=== PATIENT | female | born 1990 | race Asian ===

== ENCOUNTER 2021-10-15 12:42 | Inpatient (IN) | payer OTHER, SELFPAY ==
[~2021-10-15] VITALS: Ht 170.2 cm; Wt 90.3 kg
[2021-10-15] MEDS ORDERED: NIFEdipine 10 MG CAPLF PO SCH (13:05)
[2021-10-15 13:41] LABS: BASOPHILS % (AUTO) 0.7 % (0.0-2.0); EOSINOPHILS # (AUTO) 0.1 K/uL (0-0.4); HEMATOCRIT 40.3 % (36-48); HEMOGLOBIN 13.9 g/dL (12.0-16.0); LYMPHOCYTES # (AUTO) 1.5 K/uL (2.5-16.5); LYMPHOCYTES % (AUTO) 21.1 % (20.5-51.1); MEAN CORPUSCULAR HEMOGLOBIN 33 pg (27-31); MEAN CORPUSCULAR HGB CONC 35 g/dL (33-37); MEAN CORPUSCULAR VOLUME 94.4 fL (80-94); MONOCYTES # (AUTO) 0.3 K/uL (0.8-1.0); MONOCYTES % (AUTO) 4.7 % (1.7-9.3); NEUTROPHILS % (AUTO) 72.5 % (42.2-75.2); PLATELET COUNT (AUTO) 160 K/uL (140-450); RED BLOOD CELL COUNT(AUTO) 4.27 MIL/uL (4.20-5.40); RED CELL DISTRIBUTION WIDTH 14.3 % (11.6-13.7)
[2021-10-15] MEDS ORDERED: BETAMETH ACET/BETAMETH NA PH 30 MG/5 ML VIAL IM ONE (13:41)
[2021-10-15] MEDS: BETAMETH ACET/BETAMETH NA PH 30 MG/5 ML VIAL IM SCH (13:54)
[2021-10-15 13:59] LABS: APPEARANCE,URINE HAZY (CLEAR); BILIRUBIN,URINE NEGATIVE (NEGATIVE); BLOOD, URINE NEGATIVE (NEGATIVE); COLOR,URINE ORANGE (YELLOW); LEUKOCYTE ESTERASE ,URINE 2+ (NEGATIVE); NITRITE, URINE NEGATIVE (NEGATIVE); PH,URINE 6.5 (5.0-9.0); UGLUCOSE TRACE (NEGATIVE)
[2021-10-15 14:04] LABS: ALBUMIN 2.6 g/dL (3.4-5.0); ANION GAP 15.6 (8-16); CARBON DIOXIDE 22.3 mmol/L (21-32); CREATININE 0.5 mg/dL (0.6-1.3); POTASSIUM 3.9 mmol/L (3.5-5.1); TOTAL BILIRUBIN 0.6 mg/dL (0.0-1.0)
[2021-10-15 14:28] LABS: CALCIUM OXALATE CRYSTALS,UR None Seen /HPF (None Seen); COARSE GRANULAR CASTS,URINE None Seen /LPF (None Seen); FINE GRANULAR CASTS,URINE None Seen /LPF (None Seen); HYALINE CASTS, URINE None Seen /LPF (None Seen); OTHER CRYSTALS,URINE None Seen /HPF (None Seen); RBC,URINE 0-5 /HPF (0-5); TRICHOMONAS,URINE None Seen /HPF (None Seen); TRIPLE PHOSPHATE CRYSTAL,UR None Seen /HPF (None Seen); URIC ACID CRYSTALS,URINE None Seen /HPF (None Seen); URINE AMORPHOUS URATE None Seen /HPF (None Seen); WAXY CASTS,URINE None Seen /LPF (None Seen); YEAST,URINE None Seen /HPF (None Seen)
[2021-10-15 14:29] LABS: OTHER CASTS, URINE None Seen /LPF (None Seen); RED BLOOD CELL CASTS,URINE None Seen /LPF (None Seen)
[2021-10-15] MEDS: NIFEdipine 10 MG CAPLF PO SCH (20:05)
[2021-10-16] MEDS: NIFEdipine 10 MG CAPLF PO SCH ×2 (02:02→08:25)
[2021-10-16] MEDS ORDERED: MAG SULF 2000 MG/WATER PREMIX 100 ML IV SCH (07:00)
[2021-10-16] MEDS ORDERED: MAG SULF 20 GM/H2O PREMIX DRIP 500 ML IV PRN (07:00)
[2021-10-16] MEDS ORDERED: LACTATED RINGERS 1,000 ML IV SCH (07:00)
--- NOTE | 2021-10-16 09:14 | NUR ---
PATIENT HAS BEEN SCREENED AND CATEGORIZED LOW NUTRITION RISK. PATIENT WILL BE SEEN WITHIN 7 DAYS OF ADMISSION. 10/16/21-10/21/[address]
[2021-10-16] MEDS: BETAMETH ACET/BETAMETH NA PH 30 MG/5 ML VIAL IM SCH (13:33)
== END 2021-10-16 16:00 | disposition short-term general hospital (02) | DRG 566 ==
LOC: MFCC 12:42 → OBSVTOIN 13:13 → MFCC 10-16 08:30
PROVIDERS: ADMIT Obstetrics & Gynecology; ATTEND Obstetrics & Gynecology
DX: O60.03 Preterm labor without delivery, third trimester (principal); O24.419 Gestational diabetes mellitus in pregnancy, unspecified control; O30.043 Twin pregnancy, dichorionic/diamniotic, third trimester; Z3A.34 34 weeks gestation of pregnancy; Z20.822 Contact with and (suspected) exposure to COVID-19; O32.1XX1 Maternal care for breech presentation, fetus 1; O32.1XX2 Maternal care for breech presentation, fetus 2
CPT/HCPCS: 36415; 80053; 81001; 85025; 86886; 86900; 86901; 87086; J0702; J3475

== ENCOUNTER 2021-10-24 21:35 | Inpatient (IN) | payer OTHER, SELFPAY ==
[~2021-10-24] VITALS: Ht 170.2 cm; Wt 90.7 kg
[2021-10-24] MEDS: OXYTOCIN 20 UNITS in LACTATED RINGERS 1,000 ML IV SCH (14:53)
[2021-10-24] MEDS ORDERED: METHYLERGONOVINE 0.2 MG/ML AMP IM PRN (22:20)
[2021-10-24] MEDS ORDERED: CARBOPROST 250 MCG/ML AMP IM PRN (22:20)
[2021-10-24] MEDS ORDERED: LACTATED RINGERS 1,000 ML IV SCH (22:20)
[2021-10-24] MEDS ORDERED: LACTATED RINGERS 500 ML IV SCH (22:20)
[2021-10-24 22:54] LABS: BASOPHILS % (AUTO) 0.2 % (0.0-2.0); EOSINOPHILS # (AUTO) 0.1 K/uL (0-0.4); EOSINOPHILS % (AUTO) 1.1 % (0.0-4.0); HEMATOCRIT 40.4 % (36-48); HEMOGLOBIN 13.8 g/dL (12.0-16.0); LYMPHOCYTES # (AUTO) 1.6 K/uL (2.5-16.5); MEAN CORPUSCULAR HEMOGLOBIN 32 pg (27-31); MEAN CORPUSCULAR HGB CONC 34 g/dL (33-37); MEAN CORPUSCULAR VOLUME 94.8 fL (80-94); MONOCYTES # (AUTO) 0.5 K/uL (0.8-1.0); MONOCYTES % (AUTO) 5.7 % (1.7-9.3); NEUTROPHILS # (AUTO) 6.8 K/uL (1.8-7.7); PLATELET COUNT (AUTO) 181 K/uL (140-450); RED BLOOD CELL COUNT(AUTO) 4.27 MIL/uL (4.20-5.40); RED CELL DISTRIBUTION WIDTH 14.1 % (11.6-13.7); WHITE BLOOD COUNT (AUTO) 9.1 K/uL (4.8-10.8)
[2021-10-24 23:00] LABS: PROTHROMBIN TIME 9.1 secs (10.8-13.4)
[2021-10-24 23:01] LABS: ALBUMIN 2.7 g/dL (3.4-5.0); ANION GAP 14.9 (8-16); CARBON DIOXIDE 26.6 mmol/L (21-32); CREATININE 0.5 mg/dL (0.6-1.3); POTASSIUM 4.5 mmol/L (3.5-5.1); TOTAL BILIRUBIN 0.5 mg/dL (0.0-1.0); URIC ACID 3.6 mg/dL (2.6-7.2)
[2021-10-24 23:28] VITALS: BP 109/68
[2021-10-24 23:43] LABS: APPEARANCE,URINE CLEAR (CLEAR); BILIRUBIN,URINE NEGATIVE (NEGATIVE); BLOOD, URINE NEGATIVE (NEGATIVE); COLOR,URINE YELLOW (YELLOW); LEUKOCYTE ESTERASE ,URINE NEGATIVE (NEGATIVE); NITRITE, URINE NEGATIVE (NEGATIVE); UGLUCOSE 1+ (NEGATIVE)
[2021-10-25] MEDS ORDERED: PRETAB PO (00:25)
[2021-10-25] MEDS ORDERED: FERR-252 PO (00:26)
[2021-10-25] MEDS ORDERED: ceFAZolin 1,000 MG VIAL ONE (02:55)
[2021-10-25] MEDS ORDERED: MORPHINE PRES FREE 10 MG/10 ML AMP IV ONE (03:33)
[2021-10-25] MEDS ORDERED: OXYTOCIN 40 UNITS in LACTATED RINGERS 1,000 ML IV SCH (04:15)
[2021-10-25] MEDS ORDERED: ONDANSETRON 4 MG/2 ML VIAL IVP PRN (04:15)
[2021-10-25] MEDS ORDERED: KETOROLAC 30 MG/ML VIAL IVP PRN (04:15)
[2021-10-25] MEDS ORDERED: NALOXONE 0.4 MG/ML VIAL IVP PRN (04:15)
[2021-10-25] MEDS ORDERED: PROMETHAZINE 25 MG/ML VIAL IVP PRN (05:00)
[2021-10-25] MEDS ORDERED: MEASLES, MUMPS, AND RUBELLA 1 VIAL SQVAC ONE (05:00)
[2021-10-25] MEDS ORDERED: METHYLERGONOVINE 0.2 MG/ML AMP IM PRN (05:00)
[2021-10-25] MEDS: OXYTOCIN 20 UNITS/LR PREMIX 1,000 ML IV ONE ×2 (05:22→05:35)
[2021-10-25] MEDS: OXYTOCIN 20 UNITS in LACTATED RINGERS 1,000 ML IV SCH ×2 (06:55→22:47)
[2021-10-25] MEDS: diphenhydrAMINE 50 MG/ML VIAL IVP PRN ×2 (08:21→15:10)
[2021-10-25] MEDS ORDERED: bisacodyL 10 MG SUPP RC SCH (09:00)
[2021-10-25] MEDS ORDERED: OXYTOCIN 20 UNITS/LR PREMIX 1,000 ML IV ONE ×2 (13:00→22:29)
--- NOTE | 2021-10-25 15:52 | NUR ---
PATIENT HAS BEEN SCREENED AND CATEGORIZED LOW NUTRITION RISK. PATIENT WILL BE SEEN WITHIN 7 DAYS OF ADMISSION. 10/31/[address]
[2021-10-26] MEDS: oxyCODONE/APAP 5/325 MG 1 TAB TAB PO PRN ×5 (01:29→23:26)
[2021-10-26 07:14] LABS: BASOPHILS % (AUTO) 0.1 % (0.0-2.0); EOSINOPHILS # (AUTO) 0.1 K/uL (0-0.4); EOSINOPHILS % (AUTO) 0.5 % (0.0-4.0); HEMATOCRIT 32.1 % (36-48); HEMOGLOBIN 11.2 g/dL (12.0-16.0); LYMPHOCYTES # (AUTO) 1.2 K/uL (2.5-16.5); LYMPHOCYTES % (AUTO) 13.2 % (20.5-51.1); MEAN CORPUSCULAR HEMOGLOBIN 33 pg (27-31); MEAN CORPUSCULAR HGB CONC 35 g/dL (33-37); MEAN CORPUSCULAR VOLUME 94.6 fL (80-94); MONOCYTES # (AUTO) 0.6 K/uL (0.8-1.0); NEUTROPHILS # (AUTO) 7.5 K/uL (1.8-7.7); NEUTROPHILS % (AUTO) 80.2 % (42.2-75.2); PLATELET COUNT (AUTO) 138 K/uL (140-450); RED BLOOD CELL COUNT(AUTO) 3.39 MIL/uL (4.20-5.40); RED CELL DISTRIBUTION WIDTH 14.3 % (11.6-13.7); WHITE BLOOD COUNT (AUTO) 9.3 K/uL (4.8-10.8)
[2021-10-26] MEDS ORDERED: CAMERA MC ONE (23:56)
[2021-10-27] MEDS: oxyCODONE/APAP 5/325 MG 1 TAB TAB PO PRN (08:03)
[2021-10-27] MEDS ORDERED: SODIUM PHOSPHATE 118 ML ENEM RC SCH (08:05)
== END 2021-10-27 10:15 | disposition home or self-care (01) | DRG 540 ==
LOC: MLD 21:35 → OBSVTOIN 21:35 → MFCC 10-25 06:09
PROVIDERS: ADMIT Obstetrics & Gynecology; ATTEND Obstetrics & Gynecology
PROC: 10D00Z1 Extraction of Products of Conception, Low, Open Approach (ICD-10-PCS; principal; 2021-10-25 03:30)
DX: O30.043 Twin pregnancy, dichorionic/diamniotic, third trimester (principal); O60.13X1 Preterm labor second trimester with preterm delivery third trimester, fetus 1; O60.13X2 Preterm labor second trimester with preterm delivery third trimester, fetus 2; Z37.2 Twins, both liveborn; D62 Acute posthemorrhagic anemia; O32.1XX1 Maternal care for breech presentation, fetus 1; O32.1XX2 Maternal care for breech presentation, fetus 2; O69.81X2 Labor and delivery complicated by cord around neck, without compression, fetus 2; Z3A.36 36 weeks gestation of pregnancy; Z20.822 Contact with and (suspected) exposure to COVID-19; O90.81 Anemia of the puerperium
CPT/HCPCS: 36415; 51702; 80053; 81003; 84550; 85025; 85610; 85730; 86592; 86886; 86900; 86901; 87340; J0690; J1200; J1885; J2270; J2405; J2590; J7060; J7120